=== PATIENT | female | born 1960 | race Caucasian/White ===

== ENCOUNTER 2018-03-27 18:42 | Emergency (ER) | payer OTHER ==
[2018-03-27 18:43] VITALS: BP 163/78; PULSE 91; RESP 16; TEMP 98.4; O2SAT 99
--- NOTE | 2018-03-27 19:49 | RADRPT ---
EXAM DATE/TIME: 03/27/2018 19:22 [place] COMPARISON: No previous studies available for comparison. INDICATIONS : Medial and lateral right ankle pain after [place]. MEDICAL HISTORY : None. SURGICAL HISTORY : Great toe. ENCOUNTER: Initial ACUITY: 1 day PAIN SCORE: 8/10 LOCATION: Right ankle FINDINGS: Three view exam was performed of the right ankle. The bony structures are in normal alignment. No e vidence of fracture, dislocation, or soft tissue swelling. The ankle mortise is intact. No radiopaq ue foreign bodies are seen. Bony mineralization is normal. CONCLUSION: No acute fracture. Tee Thompson MD on March 27, 2018 at 19:44 Board Certified Radiologist. This report was verified electronically.
[2018-03-27] MEDS ORDERED: IBUP1TAB7 PO (20:01)
--- NOTE | 2018-03-27 20:01 | PD ---
HPI Chief Complaint: Injury Time Seen by Provider: 19:55 Travel History International Travel<30 days: No Contact w/Intl Traveler<30days: No Traveled to known affect area: No History of Present Illness HPI This is a 57-year-old female here with right ankle pain after twisting injury today. She has pain to the medial and lateral aspect of the ankle. No altered sensation. She has pain with range of motion and weightbearing. Symptom severity is moderate. Aggravated by movement and weightbearing. Slightly relieved with rest. Denies any other injury. PFSH Past Medical History High Cholesterol: Yes Thyroid Disease: Yes Tetanus Vaccination: < 5 Years Influenza Vaccination: No ?: Not Past Surgical History Cholecystectomy: Yes Hysterectomy: Yes Tonsillectomy: Yes Other Surgery: Yes (L. BUNIONECTOMY, R. GREAT TOE REPAIR, BREAST REDUCTION) Social History Alcohol Use: No Tobacco Use: No Substance Use: No Allergies-Medications (Allergen,Severity, Reaction): Coded Allergies: No Known Drug Allergies (Verified Allergy, Unknown, 03/27/18) Review of Systems Except as stated in HPI: all other systems reviewed are Neg Physical Exam Narrative GENERAL: Alert and well-appearing 57-year-old female SKIN: Warm and dry. HEAD: Normocephalic. EYES: No injection or drainage. NECK: Supple GASTROINTESTINAL: nondistended. MUSCULOSKELETAL: No cyanosis. RLE: + Tenderness to the lateral and medial malleolus. No obvious deformity. Mild swelling. Palpable DP pulse. Can freely wiggle the toes. Brisk cap refill. Data Data Last Documented VS Vital Signs Date Time Temp Pulse Resp B/P (MAP) Pulse Ox O2 Delivery O2 Flow Rate FiO2 03/27/18 18:43 98.4 91 16 163/78 (106) 99 Orders Orders Ankle, Complete ([id number]) (03/27/18 ) Sergei Bandage (03/27/18 19:55) MDM Medical Decision Making Medical Screen Exam Complete: Yes Emergency Medical Condition: Yes Differential Diagnosis Ankle sprain, ankle fracture, contusion Narrative Course 57-year-old female here with ankle pain. The extremity is neurovascularly intact. X-rays negative for fracture. She will be treated for ankle sprain Diagnosis Primary Impression: Ankle sprain Qualified Codes: S93.401A - Sprain of unspecified ligament of right ankle, initial encounter Referrals: Primary Care Physician Additional Instructions: Sergei wrap as directed. Ice and elevate the extremity. Ibuprofen as directed. Follow-up with your primary doctor. Scripts Ibuprofen (Ibuprofen) 800 Mg Tab 800 MG PO Q6HR Y for PAIN, #40 TAB 0 Refills Prov: Mavis Ambrosio 03/27/18 Disposition: 01 DISCHARGE HOME Condition: Stable Mavis Ambrosio March 27, 2018 20:01
== END 2018-03-27 20:06 | disposition home or self-care (01) ==
LOC: PHEFT 18:42
DX: S93.401A Sprain of unspecified ligament of right ankle, initial encounter (principal); X50.1XXA Overexertion from prolonged static or awkward postures, initial encounter; E78.00 Pure hypercholesterolemia, unspecified; E07.9 Disorder of thyroid, unspecified
CPT/HCPCS: 73610; 99283